=== PATIENT | female | born 1985 | race African-American/Black ===

== ENCOUNTER 2019-03-18 14:44 | Emergency (ER) | payer MEDICAID, SELFPAY | END 2019-03-18 16:53 | disposition home or self-care (01) | LOC: SCSER 14:44 | DX: S09.90XA Unspecified injury of head, initial encounter (principal); V89.2XXA Person injured in unspecified motor-vehicle accident, traffic, initial encounter | CPT/HCPCS: 99281 ==

== ENCOUNTER 2019-11-21 08:56 | Outpatient (CLI) | payer MEDICARE, MEDICAID, OTHER ==
[2019-11-21 16:48] LABS: SARS-CoV-2 MS2 Positive; SARS-CoV-2 N Gene Negative; SARS-CoV-2 S Gene Negative; SARS-CoV-2 orf1ab Negative
== END 2019-11-21 08:57 | disposition home or self-care (01) ==
LOC: LABSCS 08:56
PROVIDERS: ATTEND Family Medicine
DX: Z01.812 Encounter for preprocedural laboratory examination (principal); Z11.59 Encounter for screening for other viral diseases
CPT/HCPCS: 87635; U0003

== ENCOUNTER 2019-11-24 05:30 | Inpatient (IN) | payer MEDICARE, MEDICAID, OTHER ==
[2019-11-24] MEDS ORDERED: Ondansetron PF 4 MG/2 ML Vial IVP PRN ×3 (05:47→17:45)
[2019-11-24] MEDS ORDERED: Diphenoxylate HCl/Atropine Tablet PO PRN (05:47)
[2019-11-24] MEDS ORDERED: Lidocaine 1% (PF) 30 ML VIAL SC PRN (05:47)
[2019-11-24] MEDS ORDERED: NS w/ Oxytocin 10 units 500 ML IV SCH ×2 (05:47→06:00)
[2019-11-24] MEDS ORDERED: Ibuprofen 800 MG TAB PO PRN (05:47)
[2019-11-24] MEDS ORDERED: Misoprostol 200 MCG TAB PR PRN (05:47)
[2019-11-24] MEDS ORDERED: HYDROcodone/Acetaminophen 5/325 mg Tablet PO PRN (05:47)
[2019-11-24] MEDS ORDERED: Butorphanol Tartrate 1 MG/ML VIAL SLOW IVP PRN (05:47)
[2019-11-24] MEDS ORDERED: Promethazine HCl 25 MG/ML VIAL IM PRN ×2 (05:47→09:07)
[2019-11-24] MEDS ORDERED: Carboprost 250 MCG/ML AMP IM PRN (05:47)
[2019-11-24] MEDS ORDERED: hydrALAZINE 20 MG/ML VIAL SLOW IVP PRN ×2 (05:47→17:45)
[2019-11-24] MEDS ORDERED: Methylergonovine 0.2 MG/ML VIAL IM PRN (05:47)
[2019-11-24] MEDS ORDERED: Penicillin G Potassium 5 MILL.UNITS in Sodium Chloride 0.9% 100 ML IVPB SCH (06:00)
[2019-11-24 06:02] VITALS: BMI 23.4
[2019-11-24] MEDS: Lactated Ringer's 1,000 ML IV SCH ×3 (06:32→11:04)
[2019-11-24 06:57] LABS: Hemoglobin 10.2 g/dL (12.0-16.0); Mean Corpuscular HGB CONC 33.1 g/dL (32.0-36.0); Mean Corpuscular Hemoglobin 23.2 pg (27.0-31.0); Mean Corpuscular Volume 70.1 fL (78.0-98.0); Platelet Count 296 thou/uL (130-400); RBC Distribution Width 15.3 % (11.5-14.5); White Blood Cell (WBC) Count 8.5 thou/uL (4.8-10.8)
[2019-11-24 07:23] LABS: HBSAg Index 0.13 S/CO (0-0.99); Hep B Surf Ag Non-Reactive S/CO (NonReactive); Syphilis Antibody Nonreactive (Nonreactive); Syphilis Antibody Index 0.06 S/CO (<1.00 Non-Reactive)
[2019-11-24] MEDS ORDERED: Fentanyl 4 mcg/Bup 0.1% Cadd 100 ML ONE (07:23)
[2019-11-24] MEDS ORDERED: EPHEDRINE 25 MG/5 ML SYRINGE SLOW IVP PRN (09:07)
[2019-11-24] MEDS ORDERED: Lactated Ringer's 500 ML IV PRN (09:07)
[2019-11-24] MEDS ORDERED: Naloxone HCl 0.4 mg/ml Vial IVP PRN ×2 (09:07)
[2019-11-24] MEDS ORDERED: diphenhydrAMINE 50 MG/ML VIAL IVP PRN (09:07)
[2019-11-24] MEDS ORDERED: Communication Order-Pharmacy FS SCH (09:15)
[2019-11-24] MEDS ORDERED: Fentanyl 4 mcg/Bupivacaine 0.1% Cassette 100 ML EPIDURAL SCH (09:15)
[2019-11-24] MEDS: Penicillin G 2.5 MILL.units 2.5 MILL.UNITS in Premix Bag 1 BAG IVPB SCH (11:02)
[2019-11-24] MEDS ORDERED: Lidocaine 1% (PF) 30 ML VIAL ONE (14:51)
[2019-11-24] MEDS ORDERED: NS / Oxytocin 40 units/1000ml 1,000 ML ONE (14:51)
[2019-11-24] MEDS: NS / Oxytocin 40 units/1000ml 1,000 ML IV PRN ×2 (15:14→16:37)
[2019-11-24] MEDS ORDERED: Phytonadione Neonatal 1 MG/0.5 ML AMP ONE (16:07)
[2019-11-24] MEDS ORDERED: Erythromycin Base 0.5% Oint 1 GM TUBE ONE (16:07)
[2019-11-24] MEDS ORDERED: Preparation H Ointment 28 GM TUBE PR PRN (17:45)
[2019-11-24] MEDS ORDERED: Lanolin Ointment 7 GM TUBE TOP PRN (17:45)
[2019-11-24] MEDS ORDERED: Bisacodyl 10 MG SUPP PR PRN (17:45)
[2019-11-24] MEDS ORDERED: Milk Of Magnesia 30 ML UDCUP PO PRN (17:45)
[2019-11-24] MEDS ORDERED: NS / Oxytocin 40 units/1000ml 1,000 ML IV SCH (17:45)
[2019-11-24] MEDS ORDERED: Adacel (T-DAP) 0.5 ML SYRINGE IM ONE (17:45)
[2019-11-24] MEDS ORDERED: diphenhydrAMINE 25 MG CAP PO PRN (17:45)
[2019-11-24] MEDS: Ferrous Sulfate 325 MG TAB PO SCH (19:31)
[2019-11-24] MEDS: Docusate Calcium (SURFAK) 240 MG CAP PO SCH (21:23)
[2019-11-24] MEDS: Ibuprofen 800 MG TAB PO SCH (21:23)
[2019-11-24] MEDS ORDERED: Sodium Chloride 0.9% 10 ML ONE (22:07)
[2019-11-25] MEDS: Penicillin G 2.5 MILL.units 2.5 MILL.UNITS in Premix Bag 1 BAG IVPB SCH (01:52)
[2019-11-25] MEDS: Ibuprofen 800 MG TAB PO SCH ×3 (06:26→21:26)
[2019-11-25] MEDS ORDERED: Sodium Chloride 0.9% 0 ML ONE (06:30)
[2019-11-25 06:40] LABS: Hemoglobin 9.7 g/dL (12.0-16.0); Mean Corpuscular Hemoglobin 23.5 pg (27.0-31.0); Mean Corpuscular Volume 71.1 fL (78.0-98.0); Mean Platelet Volume 9.9 fL (7.4-10.4); Platelet Count 253 thou/uL (130-400); RBC Distribution Width 15.2 % (11.5-14.5); Red Blood Cell (RBC) Count 4.14 mill/uL (4.20-5.40); White Blood Cell (WBC) Count 10.6 thou/uL (4.8-10.8)
[2019-11-25] MEDS: Ferrous Sulfate 325 MG TAB PO SCH ×2 (08:43→16:58)
[2019-11-25] MEDS: Prenatal Vitamin 1 TAB PO SCH (08:43)
[2019-11-25] MEDS: Docusate Calcium (SURFAK) 240 MG CAP PO SCH ×2 (08:44→21:26)
[2019-11-26] MEDS: Ibuprofen 800 MG TAB PO SCH ×2 (05:55→14:22)
[2019-11-26 09:22] VITALS: BP 105/67; TEMP 98.1
[2019-11-26] MEDS: Prenatal Vitamin 1 TAB PO SCH (09:29)
[2019-11-26] MEDS: Docusate Calcium (SURFAK) 240 MG CAP PO SCH (09:29)
[2019-11-26] MEDS: Ferrous Sulfate 325 MG TAB PO SCH (09:29)
--- NOTE | 2019-11-28 06:54 | PQF ---
CLINICAL DOCUMENTATION CLARIFICATION FORM: Dear : Everett Leiva Date / Time: 11/28/19652 Please exercise your independent, professional judgment in responding to the clarification form. Clinical indicators are provided on the bottom of this form for your review Please check appropriate box(es): [ ] Associated Diagnosis: Acute blood loss anemia [ ] Not Clinically significant laboratory findings [ ] Other diagnosis [ ] Unable to determine In addition, please specify: Present on Admission (POA): [ ] Yes [ ] No [ ] Unable to determine Physician Signature: Date/Time: For continuity of documentation, please document condition throughout progress notes and discharge summary. Thank You. To be completed by CDI/Coding staff for physician review: Present Clinical Indicators - Signs / Symptoms / Labs Results and Location in Medical Record [X] RBC 4.40, Hgb 10.2, Hct 30.8 Laboratory Hematology 11/23 [X] RBC 4.14, Hgb 9.7, Hct 29.4 Laboratory Hematology 11/24 [X] BP 121/72, Pulse 86, Resp 20, Temp 98.3 Vital signs 11/23 [X] Estimated blood loss: 212 ml L&D summary Present Risk Factors Results and Location in Medical Record [X] 39 weeks IUP L&D summary [X] Tight knot L&D summary [X] GBS positive L&D summary [X] s/p L&D summary Present Treatments Results and Location in Medical Record [X] Series of hct and hgb labs Laboratory Hematology 11/23 [X] Ferrous Sulfate 325 mg oral JUL 14 [X] Lactated Ringers 1L JUL 14 CDS/Link Knitting Machine Operator Signature: Katie Padilla Phone #: [facility] [address] Date/Time: 11/28/19652 This is a permanent part of the Medical Record [facility]
== END 2019-11-26 17:20 | disposition home or self-care (01) | DRG 807 ==
LOC: L&D 05:37 → 3SE 18:51 → 3SW 11-25 16:57
PROVIDERS: ADMIT Family Medicine; ATTEND Family Medicine
PROC: 10E0XZZ Delivery of Products of Conception, External Approach (ICD-10-PCS; principal; 2019-11-24)
PROC: 3E033VJ Introduction of Other Hormone into Peripheral Vein, Percutaneous Approach (ICD-10-PCS; 2019-11-24)
PROC: 10907ZC Drainage of Amniotic Fluid, Therapeutic from Products of Conception, Via Natural or Artificial Opening (ICD-10-PCS; 2019-11-24)
DX: O99.824 Streptococcus B carrier state complicating childbirth (principal); Z37.0 Single live birth; Z3A.39 39 weeks gestation of pregnancy; O69.2XX0 Labor and delivery complicated by other cord entanglement, with compression, not applicable or unspecified
CPT/HCPCS: 36415; 51702; 85027; 86780; 86850; 86900; 86901; 87340; 87635; J2001; J2540; J2590; J3430; J3490; U0003

== ENCOUNTER 2022-09-20 22:47 | Emergency (ER) | payer MEDICARE, OTHER ==
[2022-09-20 23:45] LABS: #Monocytes 0.9 thou/uL (0.11-0.59); #Neutrophils 16.6 thou/uL (1.40-6.50); %Basophils 0.1 % (0.0-1.0); %Lymphocytes 4.4 % (21.0-51.0); %Monocytes 4.9 % (0.0-10.0); %Neutrophils 90.1 % (42.0-75.0); Mean Corpuscular HGB CONC 33.8 g/dL (32.0-36.0); Mean Platelet Volume 10.6 fL (7.4-10.4); Platelet Count 292 10x3/uL (130-400); RBC Distribution Width 12.6 % (11.5-14.5); Red Blood Cell (RBC) Count 4.64 mill/uL (4.20-5.40); White Blood Cell (WBC) Count 18.5 10x3/uL (4.8-10.8)
[2022-09-21 00:22] LABS: Acetaminophen Less than 10.0 mcg/mL (10.0-30.0); Alcohol Less than 10 mg/dL (Less than 10); Salicylate Less than 8.0 mg/dL (15.0-30.0)
[2022-09-21 00:29] LABS: ALT (SGPT) 11 U/L (8-55); AST (SGOT) 15 U/L (5-34); Albumin 4.6 g/dL (3.5-5.0); Alkaline Phosphatase 68 U/L (40-110); Anion Gap 15 mmol/L (10-20); BUN (Urea Nitrogen) 9 mg/dL (7.0-18.7); Bilirubin, Total 0.5 mg/dL (0.2-1.2); CK (CPK) 147 U/L (29-168); Calc. Creatinine Clearance 0 mL/min (70-130); Calcium 9.9 mg/dL (7.8-10.44); Carbon Dioxide 21 mmol/L (22-29); Chloride 103 mmol/L (98-107); Estimated GFR 80; Globulin 3.7 g/dL (2.4-3.5); Glucose 102 mg/dL (70-105); Potassium 3.8 mmol/L (3.5-5.1); Protein, Total 8.3 g/dL (6.0-8.3); Sodium 135 mmol/L (136-145)
[2022-09-21] MEDS ORDERED: diphenhydrAMINE 50 MG/ML VIAL ONE (00:56)
[2022-09-21] MEDS ORDERED: Ketorolac Tromethamine 30 MG/ML VIAL ONE (00:56)
[2022-09-21] MEDS ORDERED: Dexamethasone 10 MG/ML VIAL ONE (00:56)
[2022-09-21] MEDS ORDERED: Metoclopramide HCl 10 MG/2 ML VIAL ONE (00:56)
[2022-09-21 01:42] LABS: BHCG - Serum Negative (NEGATIVE); Pregs Control Background? CLEAR/WHITE (CLR/WHITE); Pregs Control Bar Appear? YES (CONTROL BAR)
[2022-09-21 01:47] LABS: Bilirubin Negative (Negative); Blood, Urine Negative (Negative); Clarity Clear (Clear); Glucose, Urine (Dipstick) Normal (Negative); Ketone, Urine 10 mg/dL (Negative); Leukocyte Negative Leu/uL (Negative); Nitrite Negative (Negative); Protein, Urine (Dipstick) Negative (Neg-Trace); Specific Gravity, Urine 1.014 (1.002-1.036); Urobilinogen Normal mg/dL (Less than 2)
[2022-09-21 01:52] LABS: Pregnancy Test - Urine (BHCG) Negative (Negative); Specific Gravity 1.014 (1.002-1.036)
[2022-09-21 01:53] LABS: Pregu Control Background? CLEAR/WHITE (CLR/WHITE); Pregu Control Bar Appear? YES (CONTROL BAR)
[2022-09-21 02:00] LABS: Amphetamine Not Detected (NotDetected); Barbiturates Screen Not Detected (NotDetected); Benzodiazepine Screen Not Detected (NotDetected); Cocaine Metabolite Screen Not Detected (NotDetected); Methadone Not Detected (NotDetected); Methamphetamine Not Detected (NotDetected); Opiate Screen Not Detected (NotDetected); Oxycodone Screen Not Detected (NotDetected); Phencyclidine (PCP) Not Detected (NotDetected); THC/Cannabinoid Screen Not Detected (NotDetected); Tricyclic Screen Not Detected (NotDetected)
[2022-09-21 02:48] LABS: Lipase Less than 4 U/L (8-78)
== END 2022-09-21 03:30 | disposition home or self-care (01) ==
LOC: ERS 22:47
DX: D57.219 Sickle-cell/Hb-C disease with crisis, unspecified (principal); R51.9 Headache, unspecified; E03.9 Hypothyroidism, unspecified; D72.829 Elevated white blood cell count, unspecified
CPT/HCPCS: 36415; 70450; 71045; 80053; 80306; 80307; 81003; 81025; 82140; 82550; 83605; 83690; 83880; 84443; 84484; 84703; 85025; 85046; 87040; 93005; 96361; 96374; 96375; J1100; J1200; J1885; J2765

== ENCOUNTER 2023-11-06 21:18 | Emergency (ER) | payer OTHER, MEDICAID ==
[2023-11-06] MEDS ORDERED: predniSONE 20 MG TAB ONE (21:38)
== END 2023-11-06 21:57 | disposition home or self-care (01) ==
LOC: ERS 21:18
DX: L50.9 Urticaria, unspecified (principal)
CPT/HCPCS: 99282; J7512